=== PATIENT | female | born 1990 ===

== ENCOUNTER 2020-03-22 15:28 | Inpatient (IN) | payer OTHER ==
[~2020-03-22] VITALS: Ht 157.5 cm; Wt 89.4 kg
[2020-03-22] MEDS ORDERED: PRENATAL TABLE1 EAC1 PO (17:49)
[2020-03-22] MEDS ORDERED: ECOTRIN81 MG PO (17:49)
== END 2020-03-26 13:08 | disposition home or self-care (01) | DRG 788 ==
LOC: LDR 15:28 → O/R 03-23 19:42 → OB/GYN 03-23 21:42
PROVIDERS: ADMIT Obstetrics & Gynecology; ATTEND Obstetrics & Gynecology
PROC: 3E0P7VZ Introduction of Hormone into Female Reproductive, Via Natural or Artificial Opening (ICD-10-PCS; 2020-03-22)
PROC: 4A1HXFZ Monitoring of Products of Conception, Cardiac Rhythm, External Approach (ICD-10-PCS; 2020-03-22)
PROC: 3E033VJ Introduction of Other Hormone into Peripheral Vein, Percutaneous Approach (ICD-10-PCS; 2020-03-23)
PROC: 10D00Z1 Extraction of Products of Conception, Low, Open Approach (ICD-10-PCS; principal; 2020-03-23 18:00)
DX: O42.113 Preterm premature rupture of membranes, onset of labor more than 24 hours following rupture, third trimester (principal); O62.0 Primary inadequate contractions; Z3A.34 34 weeks gestation of pregnancy; Z37.0 Single live birth; Z20.822 Contact with and (suspected) exposure to COVID-19